=== PATIENT | male | born 1955 | race Caucasian/White ===

== ENCOUNTER 2017-11-23 09:52 | Emergency (ER) | payer SELFPAY ==
[~2017-11-23] VITALS: Ht 167.6 cm; Wt 99.8 kg
[2017-11-23 09:59] VITALS: Ht 167.6 cm; Wt 99.8 kg
[2017-11-23 10:50] LABS: BASOPHIL % 0.9 % (0-2); PLATELET COUNT 211 x10^3mcL (130-400)
[2017-11-23 10:55] LABS: RED CELL DISTRIBUTION WIDTH 15.2 % (11.5-14.5)
[2017-11-23 11:00] LABS: CALCIUM 8.3 mg/dL (8.5-10.1); CARBON DIOXIDE 27.3 mmol/L (21-32); CHLORIDE SERUM 100 mmol/L (98-107); GFR1 > 60 mL/min; GLUCOSE SERUM 113 mg/dL (74-106); POTASSIUM SERUM 3.8 mmol/L (3.5-5.1); SODIUM SERUM 134 mmol/L (136-145)
[2017-11-23 11:05] LABS: ALBUMIN 3.8 g/dL (3.4-5.0); ALKALINE PHOSPHATASE 81 U/L (46-116); ALT/SGPT 51 U/L (16-63); AST/SGOT 28 U/L (15-37); BILIRUBIN TOTAL 0.51 mg/dL (0.20-1.00); TOTAL PROTEIN, SERUM 7.4 g/dL (6.4-8.2)
[2017-11-23 11:07] LABS: CHOLESTEROL 122 mg/dL (<200); HDL CHOLESTEROL 32 mg/dL (40-60)
[2017-11-23 15:51] VITALS: BP 112/77
== END 2017-11-23 16:04 | disposition home or self-care (01) ==
LOC: ED 09:52
PROVIDERS: Emergency Medicine
DX: R55 Syncope and collapse (principal); I10 Essential (primary) hypertension
CPT/HCPCS: 83880; 87804; J7030; Q0092